=== PATIENT | male | born 2000 | race Two or more races ===

== ENCOUNTER 2021-04-21 16:22 | Emergency (ER) | payer MEDICAID ==
[~2021-04-21] VITALS: Ht 170.2 cm; Wt 133.0 kg
[2021-04-21] MEDS ORDERED: LIDOCAINE HCL/EPINEPHRINE 1%-EPI 1:100,000 20 ML VIAL INFIL ONE (17:00)
[2021-04-21] MEDS ORDERED: BACITRACIN ZINC OINT UDPKT TOP ONE (17:00)
[2021-04-21] MEDS ORDERED: TETANUS, DIPHTHERIA, PERTUSSIS VAC/PF 0.5ML (>10YR OLD) IM ONE (17:00)
[2021-04-21] MEDS: HYDROCODONE/ACETAMINOPHEN 5/325MG TABLET PO ONE ×2 (17:25→17:27)
[2021-04-21] MEDS ORDERED: T3 PO (18:06)
[2021-04-21] MEDS ORDERED: BO1 TP (18:06)
[2021-04-21] MEDS ORDERED: MORPHINE SULFATE 10 MG/ML CPJ IM ONE (18:15)
[2021-04-21 19:36] VITALS: BP 131/81
== END 2021-04-21 19:36 | disposition home or self-care (01) ==
LOC: ER 16:22
DX: S81.012A Laceration without foreign body, left knee, initial encounter (principal); M25.512 Pain in left shoulder; V49.49XA Driver injured in collision with other motor vehicles in traffic accident, initial encounter; Y93.89 Activity, other specified; Y92.89 Other specified places as the place of occurrence of the external cause
CPT/HCPCS: 12002; 73030; 73562; 90471; 90715; 96372; 99284; J2270; J3490; L1830